=== PATIENT | female | born 1975 | race Caucasian/White ===

== ENCOUNTER 2016-10-30 17:15 | Emergency (ER) | payer MEDICAID ==
[~2016-10-30] VITALS: Ht 163.8 cm; Wt 95.3 kg
[~2016-10-30 17:15] MED LIST: CHLORTHALIDONE25 MG PO; KLOR-CON M1010 MEQ PO; OMEPRAZOLE20 MG PO; SYNTHROID75 MCG PO; VASOTEC20 MG PO; ZOFRAN4 MG PO
== END 2016-10-30 22:05 | disposition short-term general hospital (02) ==
LOC: ER 17:15
DX: K57.32 Diverticulitis of large intestine without perforation or abscess without bleeding (principal); T37.8X5A Adverse effect of other specified systemic anti-infectives and antiparasitics, initial encounter; I10 Essential (primary) hypertension; E03.9 Hypothyroidism, unspecified; Z90.49 Acquired absence of other specified parts of digestive tract; Z98.890 Other specified postprocedural states; Z98.51 Tubal ligation status; Z79.899 Other long term (current) drug therapy; Z88.4 Allergy status to anesthetic agent; Z87.891 Personal history of nicotine dependence
CPT/HCPCS: J1200; J1885; J2270; J2280; J2405; J2930; Q9963; Q9967